=== PATIENT | female | born 1990 | race Caucasian/White ===

== ENCOUNTER → 2019-11-17 13:38 | Outpatient (CLI) | payer OTHER, SELFPAY ==
[2019-11-17 14:11] LABS: Influenza A - CEPHEID Flu A POSITIVE (NEGATIVE); Influenza B - CEPHEID Flu B NEGATIVE (NEGATIVE)
== END ==
PROVIDERS: Visit Provider Physician Assistant
DX: R68.89 Other general symptoms and signs (principal)
CPT/HCPCS: 87502

== ENCOUNTER 2025-02-16 16:24 | Emergency (ER) | payer OTHER, SELFPAY ==
[2025-02-16 16:38] VITALS: BP 121/66; PULSE 111; RESP 20; TEMP 37.2; O2SAT 100; BMI 21.6
[2025-02-16 17:23] LABS: Strep Grp A by PCR Rapid Negative (Negative)
[2025-02-16 17:38] LABS: Influenza A - CEPHEID Flu A NEGATIVE (NEGATIVE); Influenza B - CEPHEID Flu B NEGATIVE (NEGATIVE); Respiratory Syncytial Virus Negative (Negative)
[2025-02-16 17:41] LABS: COVID-19 CEPHEID 4-PLEX PCR Negative (Negative)
--- NOTE | 2025-02-16 18:19 | ED.URI ---
HPI - URI/Sore Throat <Twyla Gutierrez PA-C - Last Filed: 02/16/25 19:01> General Chief Complaint: Upper Respiratory Symptoms Stated Complaint: Sore Throat Time Seen by Provider: 02/16/25 17:30 Mode of arrival: Ambulatory History of Present Illness HPI Narrative: Ms. Dubose is a pleasant 34-year-old female with a past medical history of anxiety who presents to the emergency department for sore throat x3 days. Patient is here with her and son who are also patients. Reports that they were traveling to the [facility] last week, she developed a very scratchy and dry sore throat 3 days ago and an occasional nighttime cough. She attributed the symptoms to allergies however they have continued and today her son developed a fever. She attempted to bring her family to the walk-in clinic but was redirected the emergency room due to the walk-in clinic being full/at capacity. She denies difficulty breathing, difficulty swallowing, rash, fevers, chills, or other associated symptoms. No medications DENSITOMETRIST. Related Data Home Medications Medication Instructions Recorded Confirmed levonorgestrel 21 mcg/24 hr (up to 52 mg INTRAU #0 ea 06/28/16 11/17/19 8 years) 52 mg intrauterine device (Mirena) Previous Rx's Medication Instructions Recorded metronidazole 0.75 % (37.5 mg/5 1 appl vaginal HS ##70 01/15/18 gram) vaginal gel (Metrogel Vaginal) modafinil 200 mg tablet 200 mg PO QAM PRN shift work sleep 02/27/18 #90 tabs Allergies Allergy/AdvReac Type Severity Reaction Status Date / Time No Known Drug Allergies Allergy Verified 11/17/19 13:31 Review of Systems <Twyla Gutirerez PA-C - Last Filed: 02/16/25 19:01> Review of Systems ROS Unobtainable: All systems reviewed & are unremarkable except as noted in HPI and below Patient History <Twyla Gutierrez PA-C - Last Filed: 02/16/25 19:01> Medical History Influenza A Painful menstruation (2013) Anorexia nervosa (2008) ADHD (attention deficit hyperactivity disorder) (2007) Family History Father Age: 64 Cancer Grandfather Cancer Grandmother Mental health problem Grandfather Cancer Obesity Social History Smoking Status: Never smoker Smoking Status: Never smoker Exam <Twyla Gutierrez PA-C - Last Filed: 02/16/25 19:01> Narrative Exam Narrative: GENERAL: 34 year old patient appears stated age. Well-developed patient, in no acute distress. HEAD: Atraumatic. Normocephalic. EYES: Extraocular motions intact. No scleral icterus. No injection or drainage. ENT: Nose without bleeding, purulent drainage. Throat with mild posterior oropharyngeal erythema, NO tonsillar hypertrophy or exudate. Airway patent. NECK: Trachea midline. Cervical ROM intact. No palpable cervical lymphadenopathy. CARDIOVASCULAR: Regular rate and rhythm. RESPIRATORY: ?Nonlabored respirations. ?Speaking in clear, full sentences. ?Clear to auscultation. Breath sounds equal bilaterally. No wheezes, rales, or rhonchi. ? NEURO: AOx3. ?Clear speech. ?Moves all 4 extremities appropriately. SKIN: No rash or erythema of visible areas Initial Vital Signs Initial Vital Signs: Vital Signs Temperature 99 F 02/16/25 16:38 Pulse Rate 111 H 02/16/25 16:38 Respiratory Rate 20 02/16/25 16:38 Blood Pressure 121/66 02/16/25 16:38 Pulse Oximetry 100 02/16/25 16:38 Oxygen Delivery Method Room Air 02/16/25 16:38 <Axel Jones MD - Last Filed: 02/16/25 19:46> Initial Vital Signs Initial Vital Signs: Vital Signs Temperature 99 F 02/16/25 16:38 Pulse Rate 111 H 02/16/25 16:38 Respiratory Rate 20 02/16/25 16:38 Blood Pressure 121/66 02/16/25 16:38 Pulse Oximetry 100 02/16/25 16:38 Oxygen Delivery Method Room Air 02/16/25 16:38 Course <Twyla Gutierrez PA-C - Last Filed: 02/16/25 19:01> Orders Ordered: ED Orders 02/16/25 16:41 Covid-19 + FLU A/B + RSV - PCR Stat Strep Grp A by PCR Rapid Stat 02/16/25 16:45 Throat Culture Stat Vital Signs Vital signs: Vital Signs - 8 hr 02/16/25 16:38 02/16/25 18:33 Temperature 99 F 98.6 F Pulse Rate 111 H 95 H Respiratory Rate 20 16 Blood Pressure 121/66 120/64 Pulse Oximetry 100 97 Oxygen Delivery Method Room Air Room Air <Axel Jones MD - Last Filed: 02/16/25 19:46> Orders Ordered: ED Orders 02/16/25 16:41 Covid-19 + FLU A/B + RSV - PCR Stat Strep Grp A by PCR Rapid Stat 02/16/25 16:45 Throat Culture Stat Vital Signs Vital signs: Vital Signs - 8 hr 02/16/25 16:38 02/16/25 18:33 Temperature 99 F 98.6 F Pulse Rate 111 H 95 H Respiratory Rate 20 16 Blood Pressure 121/66 120/64 Pulse Oximetry 100 97 Oxygen Delivery Method Room Air Room Air MDM - URI/Sore Throat <Twyla Gutierrez PA-C - Last Filed: 02/16/25 19:01> Medical Records Attestation: I reviewed the patient's medical records. Lab Data Labs: Lab Results 02/16/25 Range/Units 16:41 SARS-CoV-2 (PCR) Negative (Negative) Influenza A (RT-PCR) Flu a negative (NEGATIVE) Influenza B (RT-PCR) Flu b negative (NEGATIVE) RSV (PCR) Negative (Negative) Group A Strep (PCR) Negative (Negative) MDM Narrative Medical decision making narrative: 34-year-old female with a past medical history of anxiety who presents to the emergency department for sore throat x3 days. Differential diagnosis includes but is not limited to viral syndrome, viral pharyngitis, strep pharyngitis, hay fever, etc. On exam the patient is in no acute distress, nontoxic appearing, vital signs appropriate except for mildly elevated heart rate. Physical exam reveals mild posterior oropharyngeal erythema. Rapid strep and COVID/flu/RSV swab negative. Throat culture sent. Recommended supportive care for viral pharyngitis with rest, hydration, warm tea with honey, ibuprofen, acetaminophen. Advised to follow up with PCP and discussed strict ED return precautions. Patient verbalized understanding of all information agreeable with the plan, she is stable for discharge home. <Axel Jones MD - Last Filed: 02/16/25 19:46> Lab Data Labs: Lab Results 02/16/25 Range/Units 16:41 SARS-CoV-2 (PCR) Negative (Negative) Influenza A (RT-PCR) Flu a negative (NEGATIVE) Influenza B (RT-PCR) Flu b negative (NEGATIVE) RSV (PCR) Negative (Negative) Group A Strep (PCR) Negative (Negative) Discharge Plan Departure Patient Disposition: Home Clinical Impression: Viral pharyngitis Instructions: DI for Pharyngitis/Tonsillopharyngitis -- Adult Activity Restrictions/Additional Instructions: Dear Ms. Dubose, Thank you for coming to the emergency department. Today tested negative for COVID, flu a, flu B, RSV, strep throat. A throat culture has been sent. You will be called if the throat culture comes back positive. Please rest, hydrate, use ibuprofen and acetaminophen if needed for pain or fevers, drink warm tea with honey. Please follow up with the primary care doctor but return to the ER if you develop any new or worsening symptoms such as difficulty breathing, difficulty swallowing or any other concerns. Please follow up with your primary care doctor within the next 2-3 days for ER follow-up. (If you do not have a PCP you can call [phone]. ?to schedule an appointment with an [facility] Primary Care Provider) IF YOU DEVELOP ANY NEW OR WORSENING SYMPTOMS, RETURN TO THE ER! Please read the attached instructions, they highlight more specific treatments and interventions for you at home. Thank you for letting me participate in your care, Twyla Gutierrez PA-C Prescriptions: No Action modafinil 200 mg tablet 200 mg PO QAM PRN (Reason: shift work sleep) Qty: 90 3RF levonorgestrel [Mirena] 1 EACH intrauterine device 52 mg INTRAU Qty: 0 metronidazole [Metrogel Vaginal] 0.75 % gel 1 appl Vaginal HS Qty: 70 6RF Stand Alone Forms: Patient Portal/API/Survey ED Sign-out <Axel Jones MD - Last Filed: 02/16/25 19:46> Cosign ED Attending Cosignature Attestation: I was immediately available in the department for consultation. This documentation has been reviewed and I agree with assessment and plan. Supervised by Axel Jones MD
[2025-02-16 18:33] VITALS: BP 120/64; PULSE 95; RESP 16; TEMP 37; O2SAT 97
== END 2025-02-16 18:34 | disposition home or self-care (01) ==
PROVIDERS: Emergency Provider Physician Assistant
DX: J02.9 Acute pharyngitis, unspecified (principal)
CPT/HCPCS: 0241U; 87070; 87651; 99281; 99282